=== PATIENT | male | born 1950 | race Two or more races ===

== ENCOUNTER 2024-03-30 09:48 | Outpatient (AMB) | payer MEDICARE, MEDICAID, SELFPAY ==
[2024-03-30 09:58] VITALS: BP 213/100; PULSE 71; RESP 18; TEMP 36.2; O2SAT 97; BMI 28.8
--- NOTE | 2024-03-30 09:58 | PD.ORTHCLVIS ---
Vital signs 03/30/24 09:58 Height 1.6 m Height Method Stated Weight 73.964 kg Weight Measurement Method Standing Scale BMI 28.8 BP 213/100 H Blood Pressure Source Automatic Cuff Blood Pressure Location Right Upper Arm Position Sitting Respiration 18 Pulse 71 Pulse Source Monitor Temp 97.2 F Temp Source Temporal Artery Scan Pulse Oximetry (%) 97 Oxygen Delivery Method Room Air Med/Allergies Allergies & Medications Allergies No Known Allergies Allergy (Verified 03/30/24 09:59) Medication Reconciliation HYPERTENSION MED PO QAM ##0 10/08/14 [History Confirmed 03/30/24] ibuprofen 800 mg tablet 800 mg PO BID PRN PAIN #0 tabs 10/08/14 [History Confirmed 03/30/24] nystatin 100,000 unit/gram topical ointment 1 applic topical BID #60 grams 04/02/22 [Rx Confirmed 03/30/24] nitrofurantoin monohydrate/macrocrystals 100 mg capsule (Macrobid) 100 mg PO BID #20 caps 04/22/22 [Rx Confirmed 03/30/24] ciprofloxacin HCl 500 mg tablet (Cipro) 500 mg PO BID #10 tabs 07/04/22 [Rx Confirmed 03/30/24] tamsulosin 0.4 mg capsule (Flomax) 0.4 mg PO QDAY #30 caps 07/04/22 [Rx Confirmed 03/30/24] cephalexin 500 mg capsule 500 mg PO QID #28 caps 07/24/22 [Rx Confirmed 03/30/24] ibuprofen 600 mg tablet 600 mg PO Q8H PRN fever or pain #20 tabs 12/13/23 [Rx Confirmed 03/30/24] alfuzosin 10 mg tablet,extended release 24 hr 10 mg PO QDAY 03/09/24 [History Confirmed 03/30/24] losartan 50 mg tablet 50 mg PO QDAY 03/09/24 [History Confirmed 03/30/24] Subjective Visit Visit for: follow up visit, knee, x-rays and injections Immunization / Flu Flu Vaccine in the Last 12 Months: Yes Flu Vaccine Exclusion Criteria: Already Received History of Present Illness Chief complaint: FOLLOW UP XRAYS/RIGHT KNEE/INJECTION Patient is a pleasant 74-year-old female with right knee pain and right knee arthritis. He has tried Voltaren cream as well as anti-inflammatories. He reports that he was not able to walk 2 years ago and he has been walking recently and they have noticed that the knee has swollen up. Pain Pain level (0-10): 5 Pain duration: CONSTANT Pain location: inside (medial), outside (lateral), anterior and posterior Pain quality: sharp and aching Pain timing: increases with activity Associated signs & symptoms: weakness Ambulatory data Ambulatory device: walker Treatments Improvement with previous injections: No Improvement with PT: No Improvement with NSAIDS: no Review of Systems Review of Systems: All systems negative unless otherwise noted in HPI. Exam Exam Patient is in no acute distress and is cooperative with the examination today. Breathing is nonlabored. Patient has a normal mood and affect. Bilateral extremities were evaluated and demonstrates sensation intact to light touch. Palpable pedal pulses are present. No significant edema is present. Bilateral hips were examined. The patient has no pain with log roll of the hips. Internal rotation to 30 degrees and external rotation to 30 degrees is painless. Negative FADIR. Left knee was examined today. The left knee is in reasonable alignment. Range of motion from 0-120 degrees. Knee is stable to varus and valgus as well as AP translation with <5mm. Patient has a negative McMurrays. There is no pain with patellofemoral compression and no crepitus noted. The knee is nontender to palpation. The right knee was also examined. The right knee is in [varus] alignment. Range of motion from [0-115] degrees. Knee is stable to varus and valgus as well as AP translation with <5mm. Patient has a [negative] McMurrays. There is [no] pain with patellofemoral compression and [no] crepitus noted. The knee is [tender] to palpation [medially]. Like when I was here x-rays demonstrate moderate right knee arthritis. There is joint space narrowing. He would benefit from weightbearing x-rays Assessment and Plan Problem List (1) Arthritis of right knee: Status: Acute Plan: Patient is a pleasant 74-year-old male with right knee pain and right knee arthritis. We discussed nonoperative and operative options. He would like injections today. He has severe stenosis of his spine we recommend he see a back surgeon. His main issue is weakness and pain down both legs. This is almost for From the spine given that he has bilateral lower extremity weakness and severe spinal stenosis on MRI Plan Recommend knee cortisone injection as patient would like to proceed with conservative treatment at this time. The risks and benefits of the procedure were reviewed with the patient and patient gave verbal consent to continue with the procedure. Procedure: performed by Dr. Richter Using sterile technique the Right knee was thoroughly prepped with alcohol, and approximately 1 cc of Kenalog 40 mg/mL and 4 cc of 1% lidocaine was injected without resistance into the medial tibial femoral joint space. The patient tolerated the procedure. Advanced Care Planning Discussion Advance care planning discussed with:: patient Office Procedures GNS Level of Care Nursing/Assessment Patient Status: Established Patient Nursing Assessment/Reassesment: Medication Reconciliation, Update PMH in EMR and Vital Signs Coordination of Care: Complex Care and Chronic Disease 1-5, Education Complex Pt/Fam, Consent,records obtained, informed consent, 1 Ins Authorization, Results/Orders obtained and Staff clarify orders Established Patient Charge Established Patient Point Assignment: 110 Established Patient Point Charge: EP Level 3 (80-115) Surgical Proc/IM SQ injection Major Surgical Procedure: Yes (RIGHT KNEE INJECTION) Medication Given Medication Given Medication Given: Yes Documented Dose Given: 4 Route: Infiitration Medication Given Medication Given Medication Given: Yes Documented Dose Given: 1 Route: Infiitration Office Meds Xylocaine 10 mg/mL (1 %) injection solution Performing Provider: Jeffrey Richter MD Performing Location: [facility] Administered by: Jeffrey Richter MD on 03/30/24 10:27 Dose Route Admin Location Dispensed Lot Number Expiration Date [facility] Intervention Manager 20 mL Infiltration 20 mL [id number] 01/26/27 00845-557-31 [facility] triamcinolone acetonide 40 mg/mL suspension for injection Performing Provider: Jeffrey Richter MD Performing Location: [facility] Administered by: Jeffrey Richter MD on 03/30/24 10:27 Dose Route Admin Location Dispensed Lot Number Expiration Date [facility] Intervention Manager 40 mg Infiltration 1 mL [id number] 12/26/25 [id number] [employer] Past Medical History Past Medical History Have you ever been diagnosed with any of the following: Neurological Problems Seizures: No Cardiology Problems Congestive Heart Failure: No Hypertension: Yes Respiratory Problems Chronic Obstructive Pulmonary Disease (COPD): No Smoking: No Smoking Exposure: No Genital/Urinary Problems Renal Disease: No Endocrine Problems Diabetes Mellitus Type 1: No Diabetes Mellitus Type 2: No Blood Problems Anemia: Yes Other Problems Blood Transfusions: No Anesthesia Reactions: No
== END 2024-03-30 10:44 | disposition home or self-care (01) ==
LOC: HODSRG 09:48
PROVIDERS: Supervising Provider Orthopaedic Surgery Adult Reconstructive Orthopaedic Surgery; Visit Provider Orthopaedic Surgery Adult Reconstructive Orthopaedic Surgery
DX: M17.11 Unilateral primary osteoarthritis, right knee (principal); M25.561 Pain in right knee; M48.00 Spinal stenosis, site unspecified; I10 Essential (primary) hypertension
CPT/HCPCS: 20610; 99213; J3301; J3490; G0463